=== PATIENT | female | born 1960 | race Caucasian/White ===

== ENCOUNTER 2025-02-23 18:17 | Emergency (ER) | payer BC, OTHER, SELFPAY ==
--- OUTSIDE RECORDS SUMMARY | 2025-02-23 18:27 | XMS_ITS | Encounter Summary ---
Author Organization [facility] Address [address] [place] [address] Care Team Providers Care Commercial Banker Name Role Phone January Walters Primary Care Provide r Encounter Details Date Type Department Care Team (Latest Contact Info) Description 03/10/1998 Outpatient Historical [facility] [address] [phone] Howie Quigley MD [address] [place] [address] Unspecified gastritis and gastroduodenitis with hemorrhage (Primary Dx); Headache(784.0) Social History Tobacco Use Types Packs/Day Years Used Date Smoking Tobacco: Never Assessed Comments Unknown Sex and Gender Information Value Date Recorded Sex Assigned at Not on file 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
--- OUTSIDE RECORDS SUMMARY | 2025-02-23 18:27 | XMS_ITS | Clinical Summary ---
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 Gender Identity Not on file Sexual Orientation Not on file Plan of Treatment Health Maintenance Due Date Last Done Comments DTAP/TDAP/TD VACCINES (1 - Tdap) 1981 HPV/Cotest (21-29) 1983 CERVICAL CANCER SCREENING 01/27/1992 HPV/Cotest (30-65) 01/27/1992 PAP SMEAR 01/27/1992 BREAST CANCER SCREENING 2002 COLORECTAL SCREENING 2007 Colorectal Cancer Screening 2007 FIT-DNA Q 3 years 2007 FIT/FOBT Q 1 year 2007 Flex Sig/CT Colonography Q 5 years 2007 ZOSTER VACCINE (1 of 2) 01/27/2012 INFLUENZA VACCINE (#1) 2025 RSV VACCINE (60+ or ) (1 - 1-dose 75+ series) 2037 Care Teams Gold Leaf Layer Relationship Specialty Start Date End Date January Walters FNP [address] [place] [address] PCP - General 12/22/08
--- OUTSIDE RECORDS SUMMARY | 2025-02-23 18:27 | XMS_ITS | Encounter Summary ---
Author Organization [facility] Address [address] [place] [address] Care Team Providers Care Geospatial Program Management Officer Name Role Phone January Walters Primary Care Provide r Encounter Details Date Type Department Care Team (Latest Contact Info) Description 03/20/2000 Outpatient Historical [address] [phone] Lily Mirza MD [address] [place] [address] Abdominal pain, unspecified site (Primary Dx) Social History Tobacco Use Types Packs/Day Years Used Date Smoking Tobacco: Never Assessed Comments Unknown Sex and Gender Information Value Date Recorded Sex Assigned at Not on file 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
--- OUTSIDE RECORDS SUMMARY | 2025-02-23 18:27 | XMS_ITS | Encounter Summary ---
Author Organization [facility] Address [address] [place] [address] Care Team Providers Care Automotive Collision Estimator Name Role Phone January Walters Primary Care Provide r Encounter Details Date Type Department Care Team (Late st Contact Info) Description 07/14/1998 Outpatient Historical 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
--- OUTSIDE RECORDS SUMMARY | 2025-02-23 18:27 | XMS_ITS | Encounter Summary ---
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 Gender Identity Not on file Sexual Orientation Not on file documented as of this encounter Plan of Treatment Not on file documented as of this encounter Procedures Procedure Name Priority Date/Time Associated Diagnosis Comments LIPID PANEL Routine 06/16/2006 8:48 AM RULING MACHINE SET UP OPERATOR documented in this encounter Results * LIPID PANEL (06/16/2006 8:48 AM RULING MACHINE SET UP OPERATOR) CALCULATED TOTAL CHOLESTEROL TO HDL RATIO 3.80 3.27 - 4.44 INTERFACE SYSTEM CHOLESTEROL 167 75 - 200 mg/dL INTERFACE SYSTEM GLUCOSE 94 70 - 110 mg/dL INTERFACE SYSTEM HDL 44 40 - 60 mg/dL INTERFACE SYSTEM CALCULATED LDL CHOLESTEROL 109 0 - 130 mg/dL INTERFACE SYSTEM TRIGLYCERIDE 72 0 - 179 mg/dL INTERFACE SYSTEM 06/16/2006 8:48 AM RULING MACHINE SET UP OPERATOR us Mynor Alvarez MD CHEMISTRY ORDERABLES Edited INTERFACE SYSTEM Refer to clinic/hospital department documented in this encounter Visit Diagnoses Not on filedocumented in this encounter Care Teams Restaurant Greeter Relationship Specialty Start Date End Date January Walters FNP [address] [place] [address] PCP - General 12/22/08 documented as of this encounter
--- OUTSIDE RECORDS SUMMARY | 2025-02-23 18:27 | XMS_ITS | Clinical Summary ---
Author Organization [facility] Address [address] [place] [address] Phone Care Team Providers Care Dietetic Technician Name Role Phone Romeo January Nasra PILLO Primary Care Provide r Allergies No known active allergies Medications TRAMADOL 50 mg Oral Tab Take 1 Tab by mouth every 6 hours as needed for Pain. 20 Tab 0 12/23/2008 Active meclizine (ANTIVERT) 25 mg Oral Tab Take 1 Tab by mouth 3 times daily as needed for Dizziness. 20 Tab None 12/23/2008 Active Social History Tobacco Use Types Packs/Day Years Used Date Smoking Tobacco: Never Assessed Comments Unknown Sex and Gender Information Value Date Recorded Sex Assigned at Not on file Legal Sex Female 2:54 AM GROUND HAND Gender Identity Not on file Sexual Orientation Not on file Last Filed Vital Signs Vital Sign Reading Time Taken Comments Blood Pressure 110/77 12/23/2008 12:54 AM CDT Pulse 78 12/23/2008 12:54 AM CDT Temperature 36.9 C (98.5 F) 12/22/2008 9:11 PM CDT Respiratory Rate 17 12/23/2008 12:54 AM CDT Oxygen Saturation 100% 12/23/2008 12:54 AM CDT Inhaled Oxygen Concentration - - Weight 86.2 kg (190 lb) 12/22/2008 9:11 PM CDT Height 175.3 cm (5' 9 ) 12/22/2008 9:11 PM CDT Body Mass Index 28.06 12/22/2008 9:11 PM CDT Plan of Treatment Health Maintenance Due Date Last Done Comments DTAP/TDAP/TD VACCINES (1 - Tdap) 1981 HPV/Cotest (21-29) 1983 HPV/Cotest (30-65) 01/27/1992 BREAST CANCER SCREENING 2002 CERVICAL CANCER SCREENING 01/14/2005 PAP SMEAR 01/14/2005 01/14/2002 COLORECTAL SCREENING 2007 Colorectal Cancer Screening 2007 FIT-DNA Q 3 years 2007 FIT/FOBT Q 1 year 2007 01/14/2002 Flex Sig/CT Colonography Q 5 years 2007 ZOSTER VACCINE (1 of 2) 01/27/2012 INFLUENZA VACCINE (#1) 2025 RSV VACCINE (60+ or ) (1 - 1-dose 75+ series) 2037 Insurance Chatty S[employer] PPO Care Teams Dietetic Technician Relationship Specialty Start Date End Date January Walters FNP [address] [place] [address] PCP - General 12/22/08
--- OUTSIDE RECORDS SUMMARY | 2025-02-23 18:27 | XMS_ITS | Encounter Summary ---
Author Organization [facility] Address [address] [place] [address] Care Team Providers Care Wardsperson Name Role Phone January Walters Primary Care Provide r Encounter Details Date Type Department Care Team (Latest Contact Info) Description 03/14/2000 Outpatient Historical [address] [phone] Lily Mirza MD [address] [place] [address] Lateral epicondylitis (Primary Dx); Contact dermatitis and other eczema, due to unspecified cause; Gynecologic examination; Vaginitis and vulvovaginitis, unspecified Social History Tobacco Use Types Packs/Day Years Used Date Smoking Tobacco: Never Assessed Comments Unknown Sex and Gender Information Value Date Recorded Sex Assigned at Not on file 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
--- OUTSIDE RECORDS SUMMARY | 2025-02-23 18:27 | XMS_ITS | Encounter Summary ---
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 changed the triglyceride reference range to 0-150 mg/dl. This is the recommendation of the National Cholesterol Education Program (NCEP-ATPIII). CALCULATED TOTAL CHOLESTEROL TO HDL RATIO 4.23 3.27 - 4.44 [facility] CHOLESTEROL 182 0 - 200 mg/dL [facility] Comment: On 10/12/2007 [facility] changed the cholesterol reference range to 0-200 mg/dl. This is the recommendation of the National Cholesterol Education Program (NCEP-ATPIII). GLUCOSE 100 70 - 110 mg/dL [facility] HDL 43 40 - 60 mg/dL [facility] CALCULATED LDL CHOLESTEROL 119(H) 0 - 100 mg/dL [facility] Comment: On 10/12/2007 [facility] changed the LDL reference range to 0- 100 mg/dl. This is the recommendation of the National Cholesterol Education Program (NCEP-ATPIII). Blood specimen (specimen) 12/09/2007 8:47 AM CDT 12/09/2007 12:46 PM CDT us Mynor Alvarez MD CHEMISTRY ORDERABLES Final Res ult [facility] CLIA# [id number] [address] [place] [address] documented in this encounter Visit Diagnoses Not on filedocumented in this encounter Care Teams Cognos Administrator Relationship Specialty Start Date End Date January Walters FNP [address] [place] [id number] PCP - General 12/22/08 documented as of this encounter
--- OUTSIDE RECORDS SUMMARY | 2025-02-23 18:27 | XMS_ITS | Encounter Summary ---
Author Organization [facility] Address [address] [place] [address] Care Team Providers Care Pipelines Manager Name Role Phone January Walters Primary Care Provide r Encounter Details Date Type Department Care Team (Late st Contact Info) Description 07/17/1998 Outpatient Historical [facility] [address] [place] [phone] Social History Tobacco Use Types Packs/Day Years Used Date Smoking Tobacco: Never Assessed Comments Unknown Sex and Gender Information Value Date Recorded Sex Assigned at Not on file Legal Sex Female 2:54 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
--- OUTSIDE RECORDS SUMMARY | 2025-02-23 18:27 | XMS_ITS | Encounter Summary ---
Author Organization [facility] Address [address] [place] [address] Care Team Providers Care Flat Polisher Name Role Phone January Walters Primary Care Provide r Encounter Details Date Type Department Care Team (Late st Contact Info) Description 04/11/1998 Outpatient [facility] [address] [place] [address] Social History Tobacco Use Types Packs/Day Years Used Date Smoking Tobacco: Never Assessed Comments Unknown Sex and Gender Information Value Date Recorded Sex Assigned at Not on file Legal 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
--- OUTSIDE RECORDS SUMMARY | 2025-02-23 18:27 | XMS_ITS | Encounter Summary ---
Author Organization [facility] Address [address] [place] [address] Care Team Providers Care Spice Miller Name Role Phone January Walters Primary Care Provide r Encounter Details Date Type Department Care Team (Latest Contact Info) Description 07/24/1998 Outpatient Historical [facility] [place] [address] [place] [address] Ev Ramirez MD [address] [place] [address] Abdominal pain, unspecified site (Primary Dx) Social History Tobacco Use Types Packs/Day Years Used Date Smoking Tobacco: Never Assessed Comments Unknown Sex and Gender Information Value Date Recorded Sex Assigned at Not on file 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
--- OUTSIDE RECORDS SUMMARY | 2025-02-23 18:27 | XMS_ITS | Encounter Summary ---
Author Organization [facility] Address [address] [place] [address] Care Team Providers Care Caul Fat Puller Name Role Phone January Walters Primary Care Provide r Encounter Details Date Type Department Care Team (Latest Contact Info) Description 04/10/1998 Outpatient Historical [facility] [address] [phone] Miguel Ángel Duenas MD [address] [address] Abdominal pain, unspecified site (Primary Dx) Social History Tobacco Use Types Packs/Day Years Used Date Smoking Tobacco: Never Assessed Comments Unknown Sex and Gender Information Value Date Recorded Sex Assigned at Not on file 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
--- OUTSIDE RECORDS SUMMARY | 2025-02-23 18:27 | XMS_ITS | Encounter Summary ---
Author Organization [facility] Address [address] [place] [address] Care Team Providers Care Life Scientists Name Role Phone January Walters Primary Care Provide r Encounter Details Date Type Department Care Team (Latest Contact Info) Description 01/14/2002 Outpatient Historical [address] [phone] Lily Mirza MD [address] [place] [address] Gynecologic examination (Primary Dx); SCREENING MAL NEOP-SITE NEC Social History Tobacco Use Types Packs/Day Years Used Date Smoking Tobacco: Never Assessed Comments Unknown Sex and Gender Information Value Date Recorded Sex Assigned at Not on file Legal 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
--- OUTSIDE RECORDS SUMMARY | 2025-02-23 18:27 | XMS_ITS | Encounter Summary ---
Author Organization [facility] Address [address] [place] [address] Care Team Providers Care High Risk Ob Name Role Phone January Walters Primary Care Provide r Encounter Details Date Type Department Care Team (Latest Contact Info) Description 08/21/2004 Outpatient Historical [facility] Medicine [address] [phone] Jennfier Ruiz MD [address] [place] [address] FLU W RESP MANIFEST NEC (Primary Dx) Social History Tobacco Use Types Packs/Day Years Used Date Smoking Tobacco: Never Assessed Comments Unknown Sex and Gender Information Value Date Recorded Sex Assigned at Not on file 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
[2025-02-23 18:30] VITALS: BP 145/78; PULSE 91; TEMP 36.3; O2SAT 99; BMI 32.5
--- NOTE | 2025-02-23 18:32 | ECG_ITS ---
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 Measurements Intervals [place] Rate: 94 P: 61 AK: 173 QRS: -15 QRSD: 88 T: 40 QT: 359 QTc: 450 Interpretive Statements SINUS RHYTHM LOW QRS VOLTAGE IN PRECORDIAL LEADS [QRS DEFLECTION < 1.0 mV IN CHEST LEADS] POSSIBLE ANTERIOR MYOCARDIAL INFARCTION , PROBABLY OLD [30 ms Q WAVE IN V3/V4, OR R < 0.2 mV IN V4] No previous ECG available for comparison Electronically Signed On 02-23-2025 23:37:15 CDT by Jennifer Ferro M.D. [id number]
--- NOTE | 2025-02-23 19:04 | XRR_ITS ---
PROCEDURE INFORMATION: Exam: XR Chest Exam date and time: 02/23/2025 7:24 PM Age: 65 years old Clinical indication: Other: Dizziness; Additional info: Dizziness, headache, chest pain, recent covid TECHNIQUE: Imaging protocol: Radiologic exam of the chest. Views: 1 view. COMPARISON: No relevant prior studies available. FINDINGS: Lungs: Unremarkable. No consolidation. Pleural spaces: Unremarkable. No pleural effusion. No pneumothorax. Heart/Mediastinum: Unremarkable. No cardiomegaly. Bones/joints: Unremarkable. XR/XR chest 1V portable [id number] IMPRESSION: No acute findings.
--- NOTE | 2025-02-23 19:06 | CTR_ITS ---
PROCEDURE INFORMATION: Exam: CT Head Without Contrast Exam date and time: 02/23/2025 7:19 PM Age: 65 years old Clinical indication: Pain; Headache not specified; Additional info: Headache, dizziness TECHNIQUE: Imaging protocol: Computed tomography of the head without contrast. Radiation optimization: All CT scans at this facility use at least one of these dose optimization techniques: automated exposure control; mA and/or kV adjustment per patient size (includes targeted exams where dose is matched to clinical indication); or iterative reconstruction. COMPARISON: No relevant prior studies available. RADIATION DOSE METRICS: Total DLP (mGy-cm): 1129.08 FINDINGS: Brain: Normal. No hemorrhage. Unremarkable white matter. No mass effect. Cerebral ventricles: Mild involutional changes of the ventricles and sulci. Paranasal sinuses: Visualized sinuses are unremarkable. No fluid levels. Mastoid air cells: Visualized mastoid air cells are well aerated. Bones: Unremarkable. No acute fracture. Soft tissues: Unremarkable. CT/CT head wo con* [id number] IMPRESSION: No acute intracranial abnormality.
[2025-02-23 19:17] LABS: Hematocrit 42.9 % (36-47); Hemoglobin 14.20 g/dL (11.27-16.99); Mean Corpuscular HGB Conc 33.1 g/dL (30-55); Mean Corpuscular Hemoglobin 27.5 pg (27-33); Mean Corpuscular Volume 83.0 fl (85-98); Nucleated Red Blood Cells % 0 %; Platelet Count 292 10^3/cmm (157-399); Red Blood Count 5.17 10^6/uL (3.85-5.65); White Blood Count 17.08 10^3/uL (3.29-11.43)
[2025-02-23] MEDS: metoclopramide 5 mg/mL SDV 2 mL 10 MG IVP (19:27)
[2025-02-23] MEDS: diphenhydrAMINE 50 mg/mL SDV 1mL 25 MG IVP (19:27)
[2025-02-23] MEDS: magnesium sulfate premix 1 GM/100 ML PIGGYBACK IV (19:28)
[2025-02-23 19:41] LABS: Troponin(5th) Baseline 12 ng/L (0-10)
[2025-02-23 19:55] LABS: Alanine Aminotransferase 36 U/L (0-33); Albumin Level 4.7 g/dL (3.5-5.2); Alkaline Phosphatase 115 U/L (35-105); Anion Gap 18.2 (5-19); Aspartate Amino Transferase 27 U/L (0-32); Blood Urea Nitrogen 23 mg/dL (8-23); Calcium 10.0 mg/dL (8.5-10.5); Carbon Dioxide 24 mmol/L (22-29); Chloride 99 mmol/L (98-107); Creatinine Clr Calc Pharmacy 90.4892; Globulin 3.1 g/dL (1.3-4.6); Glucose 111 mg/dL (65-115); Lipase 35 U/L (13-60); Magnesium 2.2 mg/dL (1.7-2.3); Osmolality Calculated 288 mOsm/kg (285-295); Potassium 4.2 mmol/L (3.5-5.1); Sodium 137 mmol/L (136-145); Thyroid Stimulating Hormone 4.59 uIU/mL (0.27-4.20); Total Protein 7.8 g/dL (6.6-8.7)
[2025-02-23 20:17] LABS: Glucose Urine UA Negative (Normal); Nitrate Urine Negative (Negative); Specific Gravity, Urine 1.021 (1.005-1.030)
[2025-02-23 20:32] LABS: Free T4 Free Thyroxine 1.41 ng/dL (0.82-1.77)
--- NOTE | 2025-02-23 20:35 | W.ED.WEAKNES ---
HPI - Weakness General: Chief complaint: Weakness Stated complaint: CP SOB dizzy Confused Time Seen by Provider: 02/23/25 18:55 History of Present Illness: 65-year-old female past medical history of hypothyroidism on low-dose Synthroid, GERD, recently status post a COVID diagnosis 2 weeks ago for which she had cough and shortness of breath, symptoms mostly improved before starting to experience about 1 week ago sinus pain and pressure with nasal discharge, was diagnosed with sinusitis and started on amoxicillin which she has taken for total of 7 out of 10 days with resolution of her sinus symptoms. 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 She also reports that she was recently given an injection of what she believes was a steroid for the COVID/sinus symptoms. She reports a history of recurrent ear issues and had a ear tube in the right ear years ago, she now has recurrent issues to the left ear from time to time. Related Data Home Medications ?Medication ?Instructions ?Recorded ?Confirmed levothyroxine 25 mcg capsule 25 mcg PO DAILY 02/09/22 02/09/22 omeprazole 20 mg capsule,delayed 20 mg PO DAILY 02/09/22 02/09/22 release Previous Rx's ?Medication ?Instructions ?Recorded amoxicillin 875 mg tablet 875 mg PO BID 10 days #20 tabs 02/09/22 Allergies Allergy/AdvReac Type Severity Reaction Status Date / Time No Known Allergies Allergy Verified 02/23/25 18:36 PFS ED PFSH: Social History Smoking and tobacco/nicotine status: never used tobacco/nicotine Female Reproductive History: Spontaneous abortions: No Physical Exam Narrative: EXAM NARRATIVE: Gen: A&Ox4, no acute distress, nontoxic appearing HEENT: Normocephalic, atraumatic, no scleral icterus, external ears normal, dry mucous membranes, right ear exam with no otitis externa, tympanic membrane appears somewhat abnormal possibly secondary to previous instrumentation but has no erythema or bulging effusion, left ear normal to the external auditory canal but has a serous effusion without erythema behind the TM Neck: Supple, full range of motion, no observable masses, no meningeal signs, negative Brudzinski Lungs: No Respiratory distress, Lungs clear to auscultation bilaterally no rales, rhonchi, wheezing CV: Regular rate and rhythm, no murmur, no pitting edema to lower extremities bilaterally Abdomen: Soft, nondistended, nontender to palpation, specifically nontender the right upper quadrant right lower quadrant, no suprapubic tenderness to palpation MSK: No joint swelling, FROM all 4 extremities Skin: No rashes, petechiae, lesions. Normal color per patient. Neuro: Alert and oriented, no slurred speech, sensation and strength grossly intact all 4 extremities, no pronator drift, ambulatory with steady gait, negative Romberg, no dysmetria, normal [id number] bilaterally Psych: Appropriate for situation. Course Reevaluation(s): Reevaluation #1: Patient reassessed, reports symptoms are markedly improved after treatment, headache resolved, indigestion/nausea symptoms resolved, no longer dizzy/lightheaded. Able to ambulate with a steady gait, hemodynamically stable, stable for discharge although I did discuss with the family specifically that given the leukocytosis (possibly related to steroid administration however that was 1+ week ago so less likely) of uncertain etiology they should have a low threshold to bring her back to the ER if her symptoms recur or worsen. At this time there is no obvious indication of the presence of a bacterial focal source of infection on physical exam urinalysis or chest x-ray, patient has no fever and does not display any signs or symptoms that would suggest bacteremia or significant sepsis. Time: 20:35 Vital Signs: Vital signs: Vital Signs Temperature 97.4 F L 02/23/25 18:30 Pulse Rate 79 02/23/25 20:50 Respiratory Rate 16 02/23/25 20:50 Blood Pressure 134/68 02/23/25 20:50 Pulse Oximetry 94 02/23/25 20:50 Oxygen Delivery Me thod Room Air 02/23/25 18:30 MDM - Weakness Medical Decision Making 65-year-old female presenting to the emergency department with episode of headache nausea lightheadedness/near syncope diaphoresis chest tightness and shortness of breath while cleaning at the house after recent COVID infection followed by sinus infection that improved with amoxicillin, she did receive steroids at some point during this time, although at least a week ago, on arrival patient appeared dehydrated and acutely uncomfortable from the headache so CT scan was performed which was negative for intracerebral hemorrhage, she had no evidence of meningeal encephalitis clinically, she had a normal/nonfocal neurologic exam, her vital signs were reassuring, she was given supportive care for headache with fluids for suspected dehydration with marked improvement of her symptoms, she had a nonspecific leukocytosis of uncertain etiology but no obvious bacterial source of infection by physical exam urinalysis or chest x-ray, she is currently stable for discharge with close monitoring of her symptoms at home, increasing hydration with consumption of both water as well as electrolyte containing fluids and adequate caloric intake, low threshold for return to ED if symptoms worsen or develops any new symptoms which patient and family present at the bedside endorsed understanding of. Lab Data Labs showing leukocytosis, normal electrolytes and kidney function, normal glucose, normal LFTs, TSH elevated with normal free T4, negative urinalysis 02/23/25 19:05 02/23/25 19:05 Radiology Impressions Chest X-Ray 02/23/25 19:04 IMPRESSION: No acute findings. Head CT 02/23/25 19:06 IMPRESSION: No acute intracranial abnormality. Laboratory Results WBC 17.08 10^3/uL (3.29-11.43) H 02/23/25 19:05 RBC 5.17 10^6/uL (3.85-5.65) 02/23/25 19:05 Hgb 14.20 g/dL (11.27-16.99) 02/23/25 19:05 Hct 42.9 % (36-47) 02/23/25 19:05 MCV 83.0 fl (85-98) L 02/23/25 19:05 MCH 27.5 pg (27-33) 02/23/25 19:05 MCHC 33.1 g/dL (30-55) 02/23/25 19:05 RDW 13.7 % (12.1-15.1) 02/23/25 19:05 Plt Count 292 10^3/cmm (157-399) 02/23/25 19:05 MPV 9.5 fL (7.4-10.4) 02/23/25 19:05 Neut % (Auto) 81.8 % 02/23/25 19:05 Lymph % (Auto) 12.2 % 02/23/25 19:05 [place] % (Auto) 5.3 % 02/23/25 19:05 Eos % (Auto) 0.1 % 02/23/25 19:05 Baso % (Auto) 0.2 % 02/23/25 19:05 Neut # (Auto) 13.98 10^3/uL (1.8-7.7) H 02/23/25 19:05 Lymph # (Auto) 2.1 10^3/uL (0.8-4.8) 02/23/25 19:05 [place] # (Auto) 0.9 10^3/uL (0.2-0.9) 02/23/25 19:05 Eos # (Auto) 0.0 10^3/uL (0.0-0.8) 02/23/25 19:05 Baso # (Auto) 0.0 10^3/uL (0.0-0.1) 02/23/25 19:05 Nucleated RBC % (auto) 0 % 02/23/25 19:05 Nucleated RBCs # 0.0 /100WBC 02/23/25 19:05 Sodium 137 mmol/L (136-145) 02/23/25 19:05 Potassium 4.2 mmol/L (3.5-5.1) 02/23/25 19:05 Chloride 99 mmol/L (98-107) 02/23/25 19:05 Carbon Dioxide 24 mmol/L (22-29) 02/23/25 19:05 Anion Gap 18.2 (5-19) 02/23/25 19:05 BUN 23 mg/dL (8-23) 02/23/25 19:05 Creatinine 0.8 mg/dL (0.5-0.9) 02/23/25 19:05 GFR Calculation 72.4 mL/min (90-130) L 02/23/25 19:05 Glucose 111 mg/dL (65-115) 02/23/25 19:05 Calculated Osmolality 288 mOsm/kg (285-295) 02/23/25 19:05 Calcium 10.0 mg/dL (8.5-10.5) 02/23/25 19:05 Magnesium 2.2 mg/dL (1.7-2.3) 02/23/25 19:05 Total Bilirubin 0.6 mg/dL (0.15-1.2) 02/23/25 19:05 AST 27 U/L (0-32) 02/23/25 19:05 ALT 36 U/L (0-33) H 02/23/25 19:05 Alkaline Phosphatase 115 U/L (35-105) H 02/23/25 19:05 Troponin T Baseline 12 ng/L (0-10) H 02/23/25 19:05 Total Protein 7.8 g/dL (6.6-8.7) 02/23/25 19:05 Albumin 4.7 g/dL (3.5-5.2) 02/23/25 19:05 Globulin 3.1 g/dL (1.3-4.6) 02/23/25 19:05 Lipase 35 U/L (13-60) 02/23/25 19:05 TSH 4.59 uIU/mL (0.27-4.20) H 02/23/25 19:05 Free T4 1.41 ng/dL (0.82-1.77) 02/23/25 19:05 Urine Color Yellow (Yellow) 02/23/25 20:05 Urine Appearance Clear (CLEAR) 02/23/25 20:05 Urine pH 8.5 (5-7) A 02/23/25 20:05 Ur Specific [place] 1.021 (1.005-1.030) 02/23/25 20:05 Urine Protein Trace (Negative) A 02/23/25 20:05 Urine Glucose (UA) Negative (Normal) 02/23/25 20:05 Urine Ketones 1+ (Negative) H 02/23/25 20:05 Urine Blood Negative (Negative) 02/23/25 20:05 Urine Nitrate Negative (Negative) 02/23/25 20:05 Urine Bilirubin Negative (Negative) 02/23/25 20:05 Urine Urobilinogen 1.0 mg/dL (Negative) 02/23/25 20:05 Ur Leukocyte Esterase Negative (Negative) 02/23/25 20:05 Urine RBC 0-2 /hpf (0-2) 02/23/25 20:05 Urine WBC 0-5 /hpf (0-5) 02/23/25 20:05 Ur Squamous Epith Cells 0-5 /hpf (0-5) 02/23/25 20:05 Amorphous Sediment Not Reportable 02/23/25 20:05 Urine Bacteria None seen /hpf (NONE) 02/23/25 20:05 Hyaline Casts 0.81 /lpf 02/23/25 20:05 All radiology interpretation(s) finalized by discharge ED provider radiology interpretation(s): Chest x-ray negative for pneumonia EKG Data EKG 1: I personally reviewed and interpreted this EKG as follows: EKG interpretation date: 02/23/25 EKG interpretation time: 18:19 Interpretation: Sinus rhythm at 94 bpm, no STEMI, no ectopy, QTc 411 ms, poor R wave progression, Discharge Plan Discharge Patient Disposition: Home Clinical Impression: Dehydration, Lightheadedness Headache Qualifiers: Headache type: unspecified Headache chronicity pattern: acute headache Intractability: not intractable Qualified Code(s): R51.9 - Headache, unspecified Leukocytosis Qualifiers: Leukocytosis type: unspecified Qualified Code(s): D72.829 - Elevated white blood cell count, unspecified Condition: Stable Prescriptions: No Action levothyroxine 25 mcg capsule 25 mcg PO DAILY omeprazole 20 mg capsule,delayed release(DR/EC) 20 mg PO DAILY amoxicillin 875 mg tablet 875 mg PO BID 10 Days Qty: 20 0RF Discharge Orders: Discharge ED (Routine); Ordered 02/23/25 Ordered By: Afshin Hand Referrals: Usman Gordillo FNP [Primary Care Provider, Orthopedics] Patient Instructions: Dehydration (ED), Leukocytosis (ED), Patient Portal & Ric[facility]le Instructions Print Language: Faroese Coding Level of Care Code 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
[2025-02-23 20:50] VITALS: BP 134/68; PULSE 79; RESP 16; O2SAT 94
== END 2025-02-23 20:59 | disposition home or self-care (01) ==
PROVIDERS: Emergency Provider Student in an Organized Health Care Education/Training Program; PCP Nurse Practitioner Family
DX: E86.0 Dehydration (principal); R42 Dizziness and giddiness; R51.9 Headache, unspecified; D72.829 Elevated white blood cell count, unspecified
CPT/HCPCS: 70450; 71045; 80053; 81001; 83690; 83735; 84439; 84443; 84484; 85025; 93005; 96365; 96375; 99285; J1200; J1885; J2765; J3475; J7030